=== PATIENT | male | born 1975 | race Caucasian/White ===

== ENCOUNTER 2020-02-23 18:03 | Emergency (ER) | payer OTHER ==
[2020-02-23 18:27] VITALS: BP 145/87
[2020-02-23] MEDS ORDERED: DIPH/PERTUSS(ACELL)/TETANUS VAC/PF 0.5 ML SYR (>=10YO) IM ONE (18:29)
[2020-02-23] MEDS ORDERED: DOXYCYCLINE HYCLATE 100 MG TABLET PO ONE (18:30)
--- NOTE | 2020-02-23 18:32 | ER Document Report ---
ED Medical Screen (RME) - General Chief Complaint: Puncture Wound Stated Complaint: LEFT FOOT INJURY Time Seen by Provider: 02/23/20 18:26 Mode of Arrival: Ambulatory Information source: Patient Notes: 44-year-old male presented to ED for puncture wound to the top of the left foot. He states he was under just a little bit of water when he got the puncture wound. He states he thinks it might be a stingray. He states the foot swelled up very large very fast and has been very painful to the touch. We will get x- rays to ensure there is no munir in the wound and then reevaluate after he is been soaked in hot water. His foot is in hot water at this time. I have also ordered a tetanus immunization and doxycycline. I have greeted and performed a rapid initial assessment of this patient. A comprehensive ED assessment and evaluation of the patient, analysis of test results and completion of medical decision making process will be conducted by an additional ED providers. Physical Exam - Vital signs Vitals: Temp Pulse Resp BP Pulse Ox 98.9 F 59 L 19 145/87 H 100 02/23/20 18:18 02/23/20 18:18 02/23/20 18:18 02/23/20 18:18 02/23/20 18:18 Course - Vital Signs Vital signs: Temp Pulse Resp BP Pulse Ox 98.9 F 59 L 19 145/87 H 100 02/23/20 18:18 02/23/20 18:18 02/23/20 18:18 02/23/20 18:18 02/23/20 18:18
--- NOTE | 2020-02-23 18:58 | RADIOLOGY REPORT (SQ) ---
EXAM DESCRIPTION: FOOT LEFT COMPLETE IMAGES COMPLETED DATE/TIME: 02/23/2020 5:40 pm REASON FOR STUDY: Possible stingray injury. COMPARISON: None. NUMBER OF VIEWS: Three views. TECHNIQUE: AP, lateral and oblique radiographic images acquired of the left foot. LIMITATIONS: None. FINDINGS: MINERALIZATION: Normal. BONES: There is no acute fracture, lytic or blastic bone lesion. Small plantar calcaneal spur. JOINTS: Normal joint space alignment. No joint effusion. SOFT TISSUES: No soft tissue swelling. No foreign body. OTHER: No other significant finding. IMPRESSION: No radiographic abnormality of the left foot. TECHNICAL DOCUMENTATION: JOB ID: [id number] [employer]- All Rights Reserved Reading location - IP/workstation name: [email or web address]
--- NOTE | 2020-02-23 19:21 | ER Document Report ---
ED Extremity Problem, Lower - General Chief Complaint: Puncture Wound Stated Complaint: LEFT FOOT INJURY Time Seen by Provider: 02/23/20 18:26 Mode of Arrival: Ambulatory Information source: Patient Notes: 44-year-old male presents to ED for stingray injury to the left foot. He states it happened about 30 minutes before getting here. I went better after he was checked and put his foot in hot water and he states his foot is much better at this time. I did triage him when I first saw him. I also ordered x-ray doxycycline and tetanus immunization. He has received these all. X-ray does not show any munir in the foot. We will discharge him home with a prescription for doxycycline. Patient states he is not from this area but he will follow-up with his primary doctor. I have given him instructions on Epson salt. - HPI Patient complains to provider of: Injury, Pain, Swelling Location: Foot Occurred: Just prior to arrival Where: Outdoors, Public place Onset/Duration: Sudden Quality of pain: Sharp, Throbbing Severity: Severe - 5 when I first saw him none now Pain Level: 5 Context: Other - Stingray injury Recent injury: Yes Associated symptoms: Other - Pain and swelling Exacerbated by: Hanging down, Movement, Walking Relieved by: Other - Hot water - Related Data Allergies/Adverse Reactions: No Known Allergies Allergy (Unverified 02/23/20 19:25) Past Medical History - General Information source: Patient - Social History Smoking Status: Current Every Day Smoker Cigarette use (# per day): Yes - 1-1 and half pack per day Smoking Education Provided: Yes - 3 minutes Frequency of alcohol use: Rare Drug Abuse: None Lives with: Family Family History: Reviewed & Not Pertinent Patient has suicidal ideation: No Patient has homicidal ideation: No - Past Medical History Cardiac Medical History: Reports: None Pulmonary Medical History: Reports: None EENT Medical History: Reports: None Neurological Medical History: Reports: None Endocrine Medical History: Reports: None Renal/ Medical History: Reports: None Malignancy Medical History: Reports None GI Medical History: Reports: Other - Inguinal hernia Musculoskeletal Medical History: Reports None Skin Medical History: Reports None Psychiatric Medical History: Reports: None Traumatic Medical History: Reports: None Infectious Medical History: Reports: None Past Surgical History: Reports: Hx Inguinal Hernia - Immunizations Immunizations up to date: Yes Hx Diphtheria, Pertussis, Tetanus Vaccination: Yes - 02/23/2020 Review of Systems - Review of Systems Constitutional: No symptoms reported EENT: No symptoms reported Cardiovascular: No symptoms reported Respiratory: No symptoms reported Gastrointestinal: No symptoms reported Genitourinary: No symptoms reported Male Genitourinary: No symptoms reported Musculoskeletal: No symptoms reported Skin: Other - Puncture wound to the top of the left foot Hematologic/Lymphatic: No symptoms reported Neurological/Psychological: No symptoms reported -: Yes All other systems reviewed and negative Physical Exam - Vital signs Vitals: Temp Pulse Resp BP Pulse Ox 98.9 F 59 L 19 145/87 H 100 02/23/20 18:18 02/23/20 18:18 02/23/20 18:18 02/23/20 18:18 02/23/20 18:18 Interpretation: Normal - General General appearance: Appears well, Alert - HEENT Head: Normocephalic, Atraumatic Eyes: Normal Pupils: PERRL - Respiratory Respiratory status: No respiratory distress Chest status: Nontender Breath sounds: Normal Chest palpation: Normal - Cardiovascular Rhythm: Regular Heart sounds: Normal auscultation Murmur: No - Abdominal Inspection: Normal Distension: No distension Bowel sounds: Normal Tenderness: Nontender Organomegaly: No organomegaly - Back Back: Normal, Nontender - Extremities General upper extremity: Normal inspection, Nontender, Normal color, Normal ROM, Normal temperature General lower extremity: Normal ROM, Normal temperature, Normal weight bearing. No: Bhargav's sign Foot: Puncture wound - Top of the left foot, Other - Pain swelling erythema - Neurological Neuro grossly intact: Yes Cognition: Normal Orientation: AAOx4 [place] Coma Scale Eye Opening: Spontaneous [place] Coma Scale Verbal: Oriented Rom Coma Scale Motor: Obeys Commands [place] Coma Scale Total: 15 Speech: Normal Motor strength normal: LUE, RUE, LLE, RLE Sensory: Normal - Psychological Associated symptoms: Normal affect, Normal mood - Skin Skin Temperature: Warm Skin Moisture: Dry Skin Color: Normal Location of irregularity: Other - Puncture wound to the top of the left foot pain swelling erythema relieved with hot water Course - Vital Signs Vital signs: Temp Pulse Resp BP Pulse Ox 98.9 F 59 L 19 145/87 H 100 02/23/20 18:18 02/23/20 18:18 02/23/20 18:18 02/23/20 18:18 02/23/20 18:18 Discharge - Discharge Clinical Impression: Contact with shanon as cause of accidental injury Condition: Stable Disposition: HOME, SELF-CARE Additional Instructions: Puncture Wound You have a puncture wound. Because these wounds often penetrate deeply beneath the skin, you must observe them carefully for complications. The wound has been examined for retained foreign material and for damage to tendons and nerves. The area should be rested and elevated for 24 hours. Then you can use the injured part -- if moving it is painfree. Punctures of the hand or foot may require splinting or crutches. The dressing should be changed daily until the wound is healed. Watch for signs of infection. Call the doctor immediately if redness, swelling, warmth, increasing pain, or wound drainage occur. If you develop numbness, persistent bleeding, or inability to move the injured area, please return for prompt re-evaluation. Your puncture wound looks to be a stingray puncture wound. The main thing listing ways is you need your antibiotics, you need to soak the injury in hot water hot but not hard enough to burn you. Doxycycline Doxycycline (Vibramycin, Doryx) is an antibiotic of the tetracycline family. This type of drug is useful for infections of the respiratory tract and genital tract, and is sometimes used for intestinal infections. Unlike most tetracyclines, doxycycline can be taken with food. It is longer acting, and (usually) less prone to side effects than regular tetracycline. Tetracycline antibiotics can stain immature teeth and SHOULD NOT BE TAKEN BY CHILDREN, NURSING MOTHERS, OR WOMEN. Tetracyclines can make you more prone to sunburn. Abdominal cramping, nausea, and diarrhea are occasional side effects. Women may experience vaginal yeast infections. Call the doctor at once if you develop hives, itching, shortness of breath, or lightheadedness. Tetanus Immunization Given You have been given an immunization against tetanus. Please record this in your records. In general, a booster is needed only once every 10 years. The tetanus shot protects against tetanus or "lockjaw," which is a complication of certain wound infections (the tetanus shot cannot protect against the actual infection). The immunization site may become warm and red due to local reaction. If this occurs, apply warm compresses and take aspirin or ibuprofen to reduce inflammation and discomfort. Return for evaluation if the reaction becomes severe. Epsom Salt Soaks Soak the wound area in a container of warm epsom salt water. If you can't get the wound area into a bucket or hilliard, use a folded towel soaked in the epsom salt solution and apply to the area. Use clean hot tap water (about the temperature of a very warm bath), mixing in about one (1) teaspoon for every pint of water. Two gallon --> 16 teaspoons Epsom Salts One gallon --> 8 teaspoons Epsom Salts Two quarts --> 4 teaspoons Epsom Salts One quart --> 2 teaspoons Epsom Salts Soak the wound for about 20 minutes while gently moving it around in the water. Repeat this four (4) times a day. FOLLOW-UP CARE: If you have been referred to a physician for follow-up care, call the physicians office for an appointment as you were instructed or within the next two days. If you experience worsening or a significant change in your symptoms, notify the physician immediately or return to the Emergency Department at any time for re-evaluation. Follow-up with your primary care doctor by telephone tomorrow to schedule a follow-up appointment either Friday or Friday. Prescriptions: Doxycycline Monohydrate 100 mg PO BID #20 capsule Forms: Elevated Blood Pressure, Smoking Cessation Education, Return to Work
== END 2020-02-23 19:28 | disposition home or self-care (01) ==
LOC: ER 18:03
DX: T63.511A Toxic effect of contact with stingray, accidental (unintentional), initial encounter (principal); S91.332A Puncture wound without foreign body, left foot, initial encounter; Z23 Encounter for immunization; F17.210 Nicotine dependence, cigarettes, uncomplicated
CPT/HCPCS: 90471; 90715; 99283; 99406